=== PATIENT | male | born 1990 | race Hispanic/Latino ===

== ENCOUNTER 2024-01-24 12:13 | Emergency (ER) | payer MEDICAID, OTHER ==
[~2024-01-24] VITALS: Ht 167.6 cm; Wt 95.3 kg
[2024-01-24] MEDS ORDERED: IBUP-2077 PO (12:56)
[2024-01-24] MEDS ORDERED: CYCL-309 PO (12:56)
[2024-01-24] MEDS: CYCLOBENZAPRINE HCL 10 MG TABLET PO ONE (13:20)
[2024-01-24 13:21] VITALS: BP 139/83; PULSE 66; RESP 20; TEMP 97.8; O2SAT 97
[2024-01-24] MEDS: ketOROlac 60 MG VIAL (30MG/ML) IM ONE (13:21)
== END 2024-01-24 13:51 | disposition home or self-care (01) ==
LOC: EDH 12:13
DX: S20.219A Contusion of unspecified front wall of thorax, initial encounter (principal); G47.30 Sleep apnea, unspecified; Z98.890 Other specified postprocedural states; V49.9XXA Car occupant (driver) (passenger) injured in unspecified traffic accident, initial encounter; Y93.89 Activity, other specified; Y92.410 Unspecified street and highway as the place of occurrence of the external cause; Y99.8 Other external cause status
CPT/HCPCS: 99283; 71045; 96372; J1885